=== PATIENT | male | born 1950 | race Caucasian/White ===

== ENCOUNTER 2020-10-26 15:09 | Inpatient (IN) | payer MEDICARE, BC ==
[~2020-10-26 15:09] MED LIST: Heparin 1,000 UNITS/ML VIAL ONE; Iopamidol 370 76% 100 ML VIAL ONE
[2020-10-26] MEDS ORDERED: Cefepime 2 GM VIAL ONE (17:43)
[2020-10-26] MEDS ORDERED: Sodium Chloride 0.9% 100 ML ONE (17:43)
[2020-10-26 17:57] LABS: #Eosinphils 0.1 thou/uL (0.0-0.7); #Lymphocytes 1.1 thou/uL (1.20-3.40); #Monocytes 0.8 thou/uL (0.11-0.59); #Neutrophils 5.1 thou/uL (1.40-6.50); %Basophils 0.2 % (0.0-1.0); %Eosinophils 1.8 % (0.0-10.0); %Lymphocytes 15.6 % (21.0-51.0); %Monocytes 10.7 % (0.0-10.0); %Neutrophils 71.7 % (42.0-75.0); Hemoglobin 10.8 g/dL (14.0-18.0); Mean Corpuscular HGB CONC 32.6 g/dL (32.0-36.0); Mean Corpuscular Hemoglobin 31.4 pg (27.0-31.0); Mean Corpuscular Volume 96.3 fL (78.0-98.0); Platelet Count 341 thou/uL (130-400); RBC Distribution Width 13.4 % (11.5-14.5); Red Blood Cell (RBC) Count 3.46 mill/uL (4.70-6.10); White Blood Cell (WBC) Count 7.1 thou/uL (4.8-10.8)
[2020-10-26 18:22] LABS: ALT (SGPT) 23 U/L (8-55); AST (SGOT) 24 U/L (5-34); Albumin 3.2 g/dL (3.4-4.8); Alkaline Phosphatase 88 U/L (40-110); Anion Gap 10 mmol/L (10-20); BUN (Urea Nitrogen) 13 mg/dL (8.4-25.7); CK (CPK) 47 U/L (30-200); Calc. Creatinine Clearance 0 mL/min (70-130); Calcium 9.3 mg/dL (7.8-10.44); Carbon Dioxide 31 mmol/L (23-31); Chloride 101 mmol/L (98-107); Globulin 3.6 g/dL (2.4-3.5); Glucose 122 mg/dL (83-110); Potassium 4.3 mmol/L (3.5-5.1); Protein, Total 6.8 g/dL (5.8-8.1); Sodium 138 mmol/L (136-145)
[2020-10-26 18:22] LABS: INR-International Normal Ratio 1.7; Prothrombin Time 20.2 sec (12.0-14.7)
[2020-10-26 18:23] LABS: PTT 51.5 sec (22.9-36.1)
[2020-10-26] MEDS ORDERED: Vancomycin 1 GM/200 ML BAG ONE (18:31)
[2020-10-26] MEDS ORDERED: Morphine 4 MG/ML VIAL ONE (20:24)
[2020-10-26] MEDS ORDERED: metroNIDAZOLE 500 MG in Premix Bag 1 BAG IVPB SCH (22:00)
[2020-10-27] MEDS ORDERED: Morphine 4 MG/ML VIAL SLOW IVP PRN (00:10)
[2020-10-27] MEDS ORDERED: Ondansetron PF 4 MG/2 ML Vial IVP PRN (00:15)
[2020-10-27] MEDS ORDERED: Ondansetron ODT 4 MG TAB SL PRN (00:15)
[2020-10-27] MEDS ORDERED: Acetaminophen 325 MG TAB PO PRN ×2 (00:15→11:36)
[2020-10-27] MEDS: metroNIDAZOLE 500 MG in Premix Bag 1 BAG IVPB SCH ×3 (00:55→16:55)
[2020-10-27 02:18] VITALS: BMI 46.2
[2020-10-27] MEDS: Cefepime 2 GM in Sodium Chloride 0.9% 100 ML IVPB SCH ×2 (05:21→18:39)
[2020-10-27] MEDS: hydrALAZINE 20 MG/ML VIAL SLOW IVP PRN (05:21)
[2020-10-27] MEDS: Vancomycin 1.5 GRAM/300 ML BAG 1.5 GM in Premix Bag 1 BAG IVPB SCH ×2 (05:21→19:15)
[2020-10-27] MEDS: cloNIDine 0.1 MG TAB PO SCH ×3 (09:04→21:03)
[2020-10-27] MEDS: Labetalol 100 MG TAB PO SCH ×2 (09:05→21:03)
[2020-10-27] MEDS: Enoxaparin Sodium 40 MG/0.4 ML SYRINGE SC SCH (09:06)
[2020-10-27] MEDS ORDERED: Ibuprofen 600 MG TAB PO PRN (11:36)
[2020-10-27] MEDS ORDERED: traMADol HCl 50 MG TAB PO PRN ×2 (11:37→16:16)
[2020-10-27 12:47] LABS: SARS-CoV-2 PCR by NAA Not Detected (NotDetected)
[2020-10-27] MEDS ORDERED: Furosemide 40 MG/4 ML VIAL SLOW IVP SCH (16:15)
[2020-10-27] MEDS ORDERED: HYDROcodone/Acetaminophen 10/325 mg Tablet PO PRN (16:16)
[2020-10-27] MEDS: Morphine 4 MG/ML VIAL SLOW IVP PRN (16:58)
[2020-10-28] MEDS: Morphine 4 MG/ML VIAL SLOW IVP PRN ×3 (00:12→18:25)
[2020-10-28] MEDS: metroNIDAZOLE 500 MG in Premix Bag 1 BAG IVPB SCH ×3 (00:12→16:31)
[2020-10-28] MEDS: hydrALAZINE 20 MG/ML VIAL SLOW IVP PRN (01:28)
[2020-10-28] MEDS: Cefepime 2 GM in Sodium Chloride 0.9% 100 ML IVPB SCH ×2 (05:52→17:44)
[2020-10-28] MEDS: Vancomycin 1.5 GRAM/300 ML BAG 1.5 GM in Premix Bag 1 BAG IVPB SCH ×2 (06:38→18:18)
[2020-10-28] MEDS: Enoxaparin Sodium 40 MG/0.4 ML SYRINGE SC SCH (09:10)
[2020-10-28] MEDS: cloNIDine 0.1 MG TAB PO SCH ×3 (09:10→20:15)
[2020-10-28] MEDS: Labetalol 100 MG TAB PO SCH ×2 (09:11→20:15)
[2020-10-28] MEDS ORDERED: hydrALAZINE 20 MG/ML VIAL SLOW IVP PRN (19:42)
[2020-10-28] MEDS: Senokot S 8.6-50 MG TAB PO SCH (20:15)
[2020-10-29] MEDS: metroNIDAZOLE 500 MG in Premix Bag 1 BAG IVPB SCH ×3 (01:12→17:14)
[2020-10-29 04:57] LABS: #Eosinphils 0.1 thou/uL (0.0-0.7); #Lymphocytes 0.8 thou/uL (1.20-3.40); #Monocytes 0.7 thou/uL (0.11-0.59); #Neutrophils 6.6 thou/uL (1.40-6.50); %Basophils 0.2 % (0.0-1.0); %Eosinophils 1.3 % (0.0-10.0); %Lymphocytes 9.2 % (21.0-51.0); %Monocytes 8.8 % (0.0-10.0); %Neutrophils 80.5 % (42.0-75.0); Hemoglobin 10.1 g/dL (14.0-18.0); Mean Corpuscular HGB CONC 31.8 g/dL (32.0-36.0); Mean Corpuscular Hemoglobin 30.6 pg (27.0-31.0); Mean Corpuscular Volume 96.2 fL (78.0-98.0); Mean Platelet Volume 6.9 fL (7.4-10.4); Platelet Count 325 thou/uL (130-400); RBC Distribution Width 13.8 % (11.5-14.5); Red Blood Cell (RBC) Count 3.31 mill/uL (4.70-6.10); White Blood Cell (WBC) Count 8.2 thou/uL (4.8-10.8)
[2020-10-29 05:10] LABS: INR-International Normal Ratio 1.7; Prothrombin Time 20.1 sec (12.0-14.7)
[2020-10-29 05:33] LABS: BUN (Urea Nitrogen) 12 mg/dL (8.4-25.7); Calc. Creatinine Clearance 168 mL/min (70-130); Calcium 8.7 mg/dL (7.8-10.44); Carbon Dioxide 23 mmol/L (23-31); Chloride 105 mmol/L (98-107); Glucose 131 mg/dL (83-110); Potassium 4.6 mmol/L (3.5-5.1); Sodium 138 mmol/L (136-145)
[2020-10-29 05:34] LABS: Anion Gap 15 mmol/L (10-20)
[2020-10-29] MEDS: Cefepime 2 GM in Sodium Chloride 0.9% 100 ML IVPB SCH ×2 (05:55→18:35)
[2020-10-29] MEDS: Vancomycin 1.5 GRAM/300 ML BAG 1.5 GM in Premix Bag 1 BAG IVPB SCH ×2 (06:28→18:59)
[2020-10-29] MEDS: Labetalol 100 MG TAB PO SCH ×3 (08:35→20:42)
[2020-10-29] MEDS: cloNIDine 0.1 MG TAB PO SCH ×3 (08:35→20:42)
[2020-10-29] MEDS: Polyethylene Glycol 3350 17 GM Packet PO SCH (08:37)
[2020-10-29] MEDS: Senokot S 8.6-50 MG TAB PO SCH ×2 (08:37→20:42)
[2020-10-29] MEDS: Warfarin Sodium 2 MG TAB PO SCH (17:13)
[2020-10-30] MEDS: metroNIDAZOLE 500 MG in Premix Bag 1 BAG IVPB SCH ×2 (00:01→08:42)
[2020-10-30 05:15] LABS: INR-International Normal Ratio 1.7; Prothrombin Time 19.9 sec (12.0-14.7)
[2020-10-30] MEDS: Cefepime 2 GM in Sodium Chloride 0.9% 100 ML IVPB SCH ×2 (06:23→17:23)
[2020-10-30] MEDS: Vancomycin 1.5 GRAM/300 ML BAG 1.5 GM in Premix Bag 1 BAG IVPB SCH ×2 (06:57→18:07)
[2020-10-30] MEDS: Polyethylene Glycol 3350 17 GM Packet PO SCH (08:42)
[2020-10-30] MEDS: Senokot S 8.6-50 MG TAB PO SCH ×2 (08:43→21:45)
[2020-10-30] MEDS: Labetalol 100 MG TAB PO SCH ×3 (08:43→21:43)
[2020-10-30] MEDS: cloNIDine 0.1 MG TAB PO SCH ×3 (08:43→21:45)
[2020-10-30] MEDS ORDERED: Warfarin Sodium 5 MG TAB PO SCH (17:00)
[2020-10-31] MEDS: Cefepime 2 GM in Sodium Chloride 0.9% 100 ML IVPB SCH (05:57)
[2020-10-31 06:07] LABS: INR-International Normal Ratio 1.7; Prothrombin Time 19.7 sec (12.0-14.7)
[2020-10-31 06:13] LABS: Vancomycin, Trough 20.1 ug/mL
[2020-10-31] MEDS: Vancomycin 1.5 GRAM/300 ML BAG 1.5 GM in Premix Bag 1 BAG IVPB SCH (06:47)
[2020-10-31] MEDS: Polyethylene Glycol 3350 17 GM Packet PO SCH (09:37)
[2020-10-31] MEDS: Labetalol 100 MG TAB PO SCH ×2 (09:38→14:18)
[2020-10-31] MEDS: Senokot S 8.6-50 MG TAB PO SCH (09:38)
[2020-10-31] MEDS: cloNIDine 0.1 MG TAB PO SCH ×2 (09:38→14:18)
[2020-10-31] MEDS: Warfarin Sodium 2 MG TAB PO SCH (16:37)
[2020-10-31 17:43] VITALS: BP 172/74; TEMP 98
[2020-10-31] MEDS ORDERED: VANCOMYCIN 1.25 GM/250 ML BAG 1.25 GM in Premix Bag 1 BAG IVPB SCH (18:00)
== END 2020-10-31 17:05 | disposition swing bed (61) | DRG 603 ==
LOC: ERS 15:09 → ONC 20:48
PROVIDERS: ADMIT Student in an Organized Health Care Education/Training Program; ATTEND Family Medicine
PROC: 02HV33Z Insertion of Infusion Device into Superior Vena Cava, Percutaneous Approach (ICD-10-PCS; principal; 2020-10-31)
PROC: B5181ZA Fluoroscopy of Superior Vena Cava using Low Osmolar Contrast, Guidance (ICD-10-PCS; 2020-10-31)
PROC: B548ZZA Ultrasonography of Superior Vena Cava, Guidance (ICD-10-PCS; 2020-10-31)
DX: L03.115 Cellulitis of right lower limb (principal); Z68.42 Body mass index [BMI] 45.0-49.9, adult; B95.62 Methicillin resistant Staphylococcus aureus infection as the cause of diseases classified elsewhere; Z20.822 Contact with and (suspected) exposure to COVID-19; I87.2 Venous insufficiency (chronic) (peripheral); I10 Essential (primary) hypertension; E66.01 Morbid (severe) obesity due to excess calories; D64.9 Anemia, unspecified; S80.11XA Contusion of right lower leg, initial encounter; W18.30XA Fall on same level, unspecified, initial encounter; Z79.01 Long term (current) use of anticoagulants; Z86.718 Personal history of other venous thrombosis and embolism; Z86.19 Personal history of other infectious and parasitic diseases; Z85.46 Personal history of malignant neoplasm of prostate; Z86.711 Personal history of pulmonary embolism; Z90.49 Acquired absence of other specified parts of digestive tract; Z79.899 Other long term (current) drug therapy
CPT/HCPCS: 36415; 36569; 71045; 80048; 80053; 80202; 82550; 83605; 85025; 85610; 85730; 87040; 87070; 87077; 87186; 87205; 93970; 96365; 96367; 96375; C1751; J0360; J0692; J1644; J1650; J1940; J2270; J3370; J3490; Q9967; U0003; U0005

== ENCOUNTER 2021-10-06 19:05 | Inpatient (IN) | payer MEDICARE, BC ==
[2021-10-06 22:24] VITALS: BMI 49.4
[2021-10-07] MEDS ORDERED: Acetaminophen 650 MG Suppository PR PRN ×2 (01:34→02:59)
[2021-10-07] MEDS ORDERED: Ondansetron ODT 4 MG TAB PO PRN (01:34)
[2021-10-07] MEDS ORDERED: Ondansetron PF 4 MG/2 ML Vial IVP PRN (01:34)
[2021-10-07] MEDS ORDERED: Acetaminophen 325 MG TAB PO PRN ×2 (01:34→02:59)
[2021-10-07] MEDS ORDERED: Non-Formulary Item 1 EACH (Warfarin Sodium [Warfarin Sodium] 4 MG Tablet) PO SCH (01:40)
[2021-10-07] MEDS ORDERED: cloNIDine 0.1 MG TAB PO SCH (02:00)
[2021-10-07] MEDS ORDERED: Labetalol HCl 100 MG TAB PO SCH (02:00)
[2021-10-07] MEDS ORDERED: Benzonatate 100 MG CAP PO PRN (02:59)
[2021-10-07] MEDS ORDERED: Albuterol 200 PUFF (6.7GM INHALER) INH PRN (02:59)
[2021-10-07] MEDS ORDERED: REMDESIVIR 200 MG in Sodium Chloride 0.9% 250 ML 210 ML IV SCH (04:00)
[2021-10-07] MEDS ORDERED: Dexamethasone 10 MG/ML VIAL SLOW IVP SCH (04:00)
[2021-10-07 04:22] LABS: INR-International Normal Ratio 2.2; PTT 44.6 sec (22.9-36.1); Prothrombin Time 25.1 sec (12.0-14.7)
[2021-10-07 04:32] LABS: Anion Gap 15 mmol/L (10-20); BUN (Urea Nitrogen) 18 mg/dL (8.4-25.7); Calc. Creatinine Clearance 128 mL/min (70-130); Calcium 9.3 mg/dL (7.8-10.44); Carbon Dioxide 26 mmol/L (23-31); Chloride 103 mmol/L (98-107); Estimated GFR 70; Glucose 108 mg/dL (83-110); Potassium 4.1 mmol/L (3.5-5.1); Sodium 140 mmol/L (136-145)
[2021-10-07 05:14] LABS: Hemoglobin 15.5 g/dL (14.0-18.0); MDiff Complete? YES; Mean Corpuscular HGB CONC 33.3 g/dL (32.0-36.0); Mean Corpuscular Hemoglobin 31.9 pg (27.0-31.0); Mean Corpuscular Volume 95.7 fL (78.0-98.0); Mean Platelet Volume 8.6 fL (7.4-10.4); Platelet Count 98 thou/uL (130-400); RBC Distribution Width 13.7 % (11.5-14.5); Red Blood Cell (RBC) Count 4.85 mill/uL (4.70-6.10); White Blood Cell (WBC) Count 4.8 thou/uL (4.8-10.8)
[2021-10-07 05:15] LABS: Band 17 % (5-11); Eosinophils 4 % (0-10); Lymphocytes 25 % (21-51); Monocytes 15 % (0-10); Neutrophil 39 % (42-75); Platelet Morphology Comment Appears Decreased
[2021-10-07] MEDS: Ascorbic Acid 500 mg Chewable Tablet PO SCH (08:11)
[2021-10-07] MEDS: Zinc Sulfate 220 MG CAP PO SCH (08:11)
[2021-10-07] MEDS: Cholecalciferol (Vitamin D3) 400 UNITS TAB PO SCH (08:12)
[2021-10-07] MEDS: Hydrochlorothiazide 25 MG TAB PO SCH (08:12)
[2021-10-07] MEDS: cloNIDine 0.1 MG TAB PO SCH ×3 (08:12→21:09)
[2021-10-07] MEDS: Losartan 25 MG TAB PO SCH (08:12)
[2021-10-07] MEDS: Labetalol HCl 100 MG TAB PO SCH ×3 (08:13→21:09)
[2021-10-07] MEDS: Pantoprazole 40 MG VIAL IVP SCH (08:13)
[2021-10-07] MEDS: HYDROcodone/Acetaminophen 10/325 mg Tablet PO PRN ×2 (15:58→21:10)
[2021-10-07] MEDS: Warfarin Sodium 3 MG TAB PO SCH (17:34)
[2021-10-07] MEDS: Gabapentin 100 MG CAP PO SCH (21:09)
[2021-10-08 06:49] LABS: Hemoglobin 14.9 g/dL (14.0-18.0); INR-International Normal Ratio 1.7; Mean Corpuscular HGB CONC 30.6 g/dL (32.0-36.0); Mean Corpuscular Volume 94.9 fL (78.0-98.0); Mean Platelet Volume 8.6 fL (7.4-10.4); Platelet Count 112 thou/uL (130-400); Prothrombin Time 19.9 sec (12.0-14.7); RBC Distribution Width 13.8 % (11.5-14.5); Red Blood Cell (RBC) Count 5.14 mill/uL (4.70-6.10)
[2021-10-08 07:00] LABS: Anion Gap 13 mmol/L (10-20); BUN (Urea Nitrogen) 19 mg/dL (8.4-25.7); Calc. Creatinine Clearance 130 mL/min (70-130); Calcium 9.2 mg/dL (7.8-10.44); Carbon Dioxide 30 mmol/L (23-31); Chloride 102 mmol/L (98-107); Estimated GFR 71; Glucose 140 mg/dL (83-110); Potassium 4.1 mmol/L (3.5-5.1); Sodium 141 mmol/L (136-145)
[2021-10-08 07:23] LABS: Band 4 % (5-11); Lymphocytes 21 % (21-51); MDiff Complete? YES; Monocytes 16 % (0-10); Neutrophil 59 % (42-75); Platelet Morphology Comment Appears Decreased; RBC Morphology Normal
[2021-10-08] MEDS ORDERED: REMDESIVIR 100 MG in Sodium Chloride 0.9% 250 ML 230 ML IV SCH (09:00)
[2021-10-08] MEDS: Labetalol HCl 100 MG TAB PO SCH ×3 (09:12→20:01)
[2021-10-08] MEDS: Ascorbic Acid 500 mg Chewable Tablet PO SCH (09:13)
[2021-10-08] MEDS: Cholecalciferol (Vitamin D3) 400 UNITS TAB PO SCH (09:14)
[2021-10-08] MEDS: cloNIDine 0.1 MG TAB PO SCH ×3 (09:14→20:01)
[2021-10-08] MEDS: Zinc Sulfate 220 MG CAP PO SCH (09:14)
[2021-10-08] MEDS: Losartan 25 MG TAB PO SCH (09:14)
[2021-10-08] MEDS: Hydrochlorothiazide 25 MG TAB PO SCH (09:14)
[2021-10-08] MEDS: Dexamethasone 10 MG/ML VIAL SLOW IVP SCH (09:15)
[2021-10-08] MEDS: Gabapentin 100 MG CAP PO SCH ×2 (09:15→20:01)
[2021-10-08] MEDS: Pantoprazole 40 MG VIAL IVP SCH (09:17)
[2021-10-08] MEDS: HYDROcodone/Acetaminophen 10/325 mg Tablet PO PRN ×2 (09:18→17:34)
[2021-10-08] MEDS: Morphine 2 MG/ML VIAL SLOW IVP PRN ×2 (12:16→20:02)
[2021-10-08] MEDS: Warfarin Sodium 3 MG TAB PO SCH (17:23)
[2021-10-09] MEDS: Morphine 2 MG/ML VIAL SLOW IVP PRN ×4 (01:27→23:39)
[2021-10-09] MEDS: HYDROcodone/Acetaminophen 10/325 mg Tablet PO PRN ×3 (03:21→20:12)
[2021-10-09 06:09] LABS: INR-International Normal Ratio 1.5; Prothrombin Time 18.1 sec (12.0-14.7)
[2021-10-09] MEDS: Hydrochlorothiazide 25 MG TAB PO SCH (08:38)
[2021-10-09] MEDS: cloNIDine 0.1 MG TAB PO SCH (08:38)
[2021-10-09] MEDS: Labetalol HCl 100 MG TAB PO SCH ×3 (08:38→20:11)
[2021-10-09] MEDS: Losartan 25 MG TAB PO SCH (08:38)
[2021-10-09] MEDS: Ascorbic Acid 500 mg Chewable Tablet PO SCH (08:38)
[2021-10-09] MEDS: Zinc Sulfate 220 MG CAP PO SCH (08:39)
[2021-10-09] MEDS: Dexamethasone 10 MG/ML VIAL SLOW IVP SCH (08:39)
[2021-10-09] MEDS: Cholecalciferol (Vitamin D3) 400 UNITS TAB PO SCH (08:39)
[2021-10-09] MEDS: Gabapentin 100 MG CAP PO SCH ×2 (08:39→20:11)
[2021-10-09] MEDS: Pantoprazole 40 MG VIAL IVP SCH (08:39)
[2021-10-09] MEDS ORDERED: hydrALAZINE 20 MG/ML VIAL SLOW IVP PRN (09:22)
[2021-10-09] MEDS ORDERED: NIFEdipine XL 60 MG TAB PO SCH (09:30)
[2021-10-09] MEDS ORDERED: Warfarin Sodium 2 MG TAB PO SCH (17:00)
[2021-10-10] MEDS: HYDROcodone/Acetaminophen 10/325 mg Tablet PO PRN (06:50)
[2021-10-10 08:01] VITALS: BP 162/92; TEMP 98.2
[2021-10-10 08:01] LABS: INR-International Normal Ratio 1.4; Prothrombin Time 17.3 sec (12.0-14.7)
[2021-10-10] MEDS: Labetalol HCl 100 MG TAB PO SCH ×2 (08:28→15:58)
[2021-10-10] MEDS: Gabapentin 100 MG CAP PO SCH (08:28)
[2021-10-10] MEDS: Losartan 25 MG TAB PO SCH (08:29)
[2021-10-10] MEDS: Dexamethasone 10 MG/ML VIAL SLOW IVP SCH (08:29)
[2021-10-10] MEDS: Cholecalciferol (Vitamin D3) 400 UNITS TAB PO SCH (08:29)
[2021-10-10] MEDS: Ascorbic Acid 500 mg Chewable Tablet PO SCH (08:29)
[2021-10-10] MEDS: Pantoprazole 40 MG VIAL IVP SCH (08:29)
[2021-10-10] MEDS: Zinc Sulfate 220 MG CAP PO SCH (08:29)
[2021-10-10] MEDS: Hydrochlorothiazide 25 MG TAB PO SCH (08:29)
[2021-10-10] MEDS: Morphine 2 MG/ML VIAL SLOW IVP PRN (08:51)
[2021-10-10] MEDS ORDERED: NIFEdipine XL 90 MG TAB PO SCH (09:00)
== END 2021-10-10 15:57 | disposition home or self-care (01) | DRG 871 ==
LOC: T4-A 21:26 → OBSVTOIN 10-07 01:06
PROVIDERS: ADMIT Internal Medicine; ATTEND Internal Medicine
PROC: 8E0ZXY6 Isolation (ICD-10-PCS; principal; 2021-10-07)
PROC: XW033E5 Introduction of Remdesivir Anti-infective into Peripheral Vein, Percutaneous Approach, New Technology Group 5 (ICD-10-PCS; 2021-10-07)
DX: A41.89 Other specified sepsis (principal); U07.1 COVID-19; J12.82 Pneumonia due to coronavirus disease 2019; J96.01 Acute respiratory failure with hypoxia; Z68.42 Body mass index [BMI] 45.0-49.9, adult; I10 Essential (primary) hypertension; D69.6 Thrombocytopenia, unspecified; E66.01 Morbid (severe) obesity due to excess calories; B18.2 Chronic viral hepatitis C; S81.801A Unspecified open wound, right lower leg, initial encounter; Z86.718 Personal history of other venous thrombosis and embolism; Z86.711 Personal history of pulmonary embolism; Z90.49 Acquired absence of other specified parts of digestive tract; Z85.46 Personal history of malignant neoplasm of prostate; Z79.01 Long term (current) use of anticoagulants
CPT/HCPCS: 36415; 80048; 83880; 85025; 85610; 86140; 93306; 97139; C9113; J0248; J1100; J2270; J7050

== ENCOUNTER 2025-01-12 08:56 | Outpatient (CLI) | payer MEDICARE, BC | END 2025-01-12 08:57 | disposition home or self-care (01) | LOC: ULT 08:56 | PROVIDERS: ATTEND Family Medicine | DX: Z13.6 Encounter for screening for cardiovascular disorders (principal); Z87.891 Personal history of nicotine dependence | CPT/HCPCS: 76706 ==

== ENCOUNTER 2025-01-27 11:18 | Outpatient (CLI) | payer MEDICARE, BC | END 2025-01-27 11:19 | disposition home or self-care (01) | LOC: RAD 11:18 | PROVIDERS: ATTEND Internal Medicine Critical Care Medicine | DX: R06.00 Dyspnea, unspecified (principal); J18.1 Lobar pneumonia, unspecified organism; J90 Pleural effusion, not elsewhere classified | CPT/HCPCS: 71046 ==